=== PATIENT | male | born 1950 | race Caucasian/White ===

== ENCOUNTER → 2017-02-03 | Day surgery (SDC) | payer MEDICARE, OTHER ==
[~2017-02-03] MED LIST: LIDOCAINE VISCOUS 2% 15ML UD ONE; MIDAZOLAM HCL 1MG/1ML-2 ML VIAL ONE; fentaNYL CITRATE 100 MCG/2 ML VL ONE
== END | disposition home or self-care (01) ==
LOC: CATH 06:35
PROVIDERS: ATTEND Specialist
DX: I48.92 Unspecified atrial flutter (principal); R00.1 Bradycardia, unspecified
CPT/HCPCS: 93312; 93613; 93656; C1730; C1731; C1733; C1894; J2250; J3010; J7030; 99152